=== PATIENT | female | born 1980 | race Caucasian/White ===

== ENCOUNTER → 2017-08-21 | Outpatient (CLI) | payer OTHER ==
[~2017-08-21] MED LIST: ACET-1770 PO; DOCU-131 PO; IBUP-1222 PO
== END | disposition home or self-care (01) ==
LOC: CVU 06:44
PROVIDERS: ATTEND Internal Medicine Cardiovascular Disease
DX: I08.1 Rheumatic disorders of both mitral and tricuspid valves (principal)
CPT/HCPCS: 93306

== ENCOUNTER 2017-12-09 11:15 | Inpatient (IN) | payer OTHER ==
[~2017-12-09] VITALS: Ht 170.2 cm; Wt 72.7 kg
[2017-12-14] MEDS ORDERED: D5%-LACTATED RINGERS 1,000 ML IV SCH (05:11)
[2017-12-14] MEDS ORDERED: OXYTOCIN 30U/ 0.9% NaCL 500ML 500 ML IV PRN (05:11)
[2017-12-14] MEDS ORDERED: OXYTOCIN 30U/ 0.9% NaCL 500ML 500 ML IV ONE (05:11)
[2017-12-14] MEDS ORDERED: NEWBORN KIT ONE (05:12)
[2017-12-14] MEDS ORDERED: OXYTOCIN 30U/ 0.9% NaCL 500ML 500 ML ONE (05:12)
[2017-12-14] MEDS ORDERED: ONDANSETRON 2MG/ML, 2ML IVPush PRN (05:30)
[2017-12-14] MEDS ORDERED: FENTANYL PF 100 MCG/2ML IVPush PRN (05:30)
[2017-12-14] MEDS ORDERED: CALCIUM CARBONATE 500 MG TAB.CHEW PO PRN ×2 (05:30→19:30)
[2017-12-14] MEDS ORDERED: FENTANYL PF 100 MCG/2ML IV PRN (05:30)
[2017-12-14] MEDS: AMPICILLIN 2 GM in SODIUM CHLORIDE 0.9% 100 ML IVPB SCH ×2 (05:45→12:16)
[2017-12-14] MEDS: LACTATED RINGERS 1,000 ML IV SCH ×3 (05:45→12:17)
[2017-12-14 05:46] VITALS: BP 108/71
[2017-12-14 05:57] LABS: BASOPHILS # (AUTO) 0.01 x10^3/uL (0-0.1); BASOPHILS % (AUTO) 0 % (0-1); EOSINOPHILS # (AUTO) 0.05 x10^3/uL (0-0.4); EOSINOPHILS % (AUTO) 1 % (1-7); LYMPHOCYTES # (AUTO) 1.96 x10^3/uL (1-3.4); LYMPHOCYTES % (AUTO) 27 % (22-44); MD NO; MEAN CORPUSCULAR HEMOGLOBIN 33.7 pg (27.0-34.8); MEAN CORPUSCULAR VOLUME 96.4 fL (80-100); MEAN PLATELET VOLUME 10.1 fL (7.4-10.4); MONOCYTES # (AUTO) 0.47 x10^3/uL (0.2-0.8); MONOCYTES % (AUTO) 7 % (2-9); NEUTROPHILS # (AUTO) 4.83 x10^3/uL (1.8-6.8); NEUTROPHILS % (AUTO) 66 % (42-75); PLATELET COUNT 192 x10^3/uL (130-400); RED BLOOD COUNT 3.74 x10^6/uL (3.82-5.3); RED CELL DISTRIBUTION WIDTH 12.9 % (9.6-15.2)
[2017-12-14] MEDS ORDERED: MISOPROSTOL 200 MCG TABLET ONE (10:53)
[2017-12-14] MEDS ORDERED: LIDOCAINE-MPF 2% ,5ML ONE (11:53)
[2017-12-14] MEDS ORDERED: FENTANYL/BUPIV./NS/PF 250 ML EPIDCONT ONE (11:54)
[2017-12-14] MEDS ORDERED: FENTANYL EPIDCONT ONE (11:55)
[2017-12-14] MEDS ORDERED: SODIUM CHLORIDE EPIDCONT ONE (11:55)
[2017-12-14] MEDS ORDERED: BUPIVACAINE EPIDCONT ONE (11:55)
[2017-12-14] MEDS ORDERED: LIDOCAINE 1%, 20ML ONE (11:55)
[2017-12-14] MEDS ORDERED: LACTATED RINGERS 1,000 ML IV SCH (12:18)
[2017-12-14] MEDS ORDERED: FENTANYL/BUPIV./NS/PF 250 ML EPIDCONT SCH (12:18)
[2017-12-14] MEDS ORDERED: NALOXONE 0.4 MG/ML, 1ML IVPush PRN (12:30)
[2017-12-14] MEDS ORDERED: EPHEDRINE 50 MG/ML, 1ML IVPush PRN (12:30)
[2017-12-14] MEDS ORDERED: LACTATED RINGERS 1,000 ML IVBOLUS PRN (12:30)
[2017-12-14] MEDS: OXYTOCIN 30U/ 0.9% NaCL 500ML 500 ML IV SCH (19:23)
[2017-12-14] MEDS ORDERED: DOCUSATE 100 MG CAPSULE PO PRN (19:30)
[2017-12-14] MEDS ORDERED: HYDROcodone/APAP 5/325 TABLET PO PRN ×2 (19:30)
[2017-12-14 21:00] VITALS: BP 93/55
[2017-12-14] MEDS: APAP/CODEINE 300/30MG TABLET PO PRN (21:57)
[2017-12-15 02:00] VITALS: BP 96/62
[2017-12-15 04:29] VITALS: BP 99/66
[2017-12-15 04:45] LABS: BASOPHILS # (AUTO) 0.06 x10^3/uL (0-0.1); BASOPHILS % (AUTO) 1 % (0-1); EOSINOPHILS # (AUTO) 0.06 x10^3/uL (0-0.4); EOSINOPHILS % (AUTO) 1 % (1-7); LYMPHOCYTES # (AUTO) 2.03 x10^3/uL (1-3.4); LYMPHOCYTES % (AUTO) 18 % (22-44); MD NO; MEAN CORPUSCULAR HEMOGLOBIN 33.7 pg (27.0-34.8); MEAN CORPUSCULAR HGB CONC 34.8 g/dL (32.4-35.8); MEAN CORPUSCULAR VOLUME 96.9 fL (80-100); MEAN PLATELET VOLUME 10.7 fL (7.4-10.4); MONOCYTES % (AUTO) 5 % (2-9); NEUTROPHILS # (AUTO) 8.45 x10^3/uL (1.8-6.8); NEUTROPHILS % (AUTO) 76 % (42-75); PLATELET COUNT 183 x10^3/uL (130-400); RED BLOOD COUNT 3.46 x10^6/uL (3.82-5.3)
[2017-12-15] MEDS: OXYTOCIN 30U/ 0.9% NaCL 500ML 500 ML IV SCH ×2 (05:23→15:23)
[2017-12-15] MEDS: APAP/CODEINE 300/30MG TABLET PO PRN ×2 (07:32→14:12)
[2017-12-15 07:55] VITALS: BP 109/69
[2017-12-15] MEDS ORDERED: ACET1TAB64 PO (08:34)
[2017-12-15] MEDS ORDERED: PRENATAL VIT/IRON/FA 1 EACH TABLET PO SCH (09:00)
[2017-12-15 11:50] VITALS: BP 102/68
[2017-12-15] MEDS ORDERED: DIPH,PERTUSS(ACELL),TET VAC/PF NC IM-VACC ONE ×2 (16:20→16:30)
[2017-12-15 17:00] VITALS: BP 125/82
== END 2017-12-15 17:20 | disposition home or self-care (01) | DRG 774 ==
LOC: LDIP 12-14 05:09 → 2NW 12-14 20:20
PROVIDERS: ADMIT Obstetrics & Gynecology Gynecology; ATTEND Obstetrics & Gynecology Gynecology
PROC: 3E033VJ Introduction of Other Hormone into Peripheral Vein, Percutaneous Approach (ICD-10-PCS; principal; 2017-12-14)
PROC: 10D07Z6 Extraction of Products of Conception, Vacuum, Via Natural or Artificial Opening (ICD-10-PCS; 2017-12-14)
PROC: 3E0R3BZ Introduction of Anesthetic Agent into Spinal Canal, Percutaneous Approach (ICD-10-PCS; 2017-12-14)
PROC: 00HU33Z Insertion of Infusion Device into Spinal Canal, Percutaneous Approach (ICD-10-PCS; 2017-12-14)
DX: O99.42 Diseases of the circulatory system complicating childbirth (principal); I05.9 Rheumatic mitral valve disease, unspecified; O99.824 Streptococcus B carrier state complicating childbirth; Z37.0 Single live birth; Z3A.40 40 weeks gestation of pregnancy
CPT/HCPCS: 36415; 82803; 85025; 86850; 86900; 90715; J0290; J3490; J3010; J7120; J7121

== ENCOUNTER → 2018-10-07 | Outpatient (CLI) | payer OTHER ==
[~2018-10-07] MED LIST changes: +ACET1TAB64 PO
== END | disposition home or self-care (01) ==
LOC: CVU 06:48
PROVIDERS: ATTEND Internal Medicine Cardiovascular Disease
DX: I08.1 Rheumatic disorders of both mitral and tricuspid valves (principal)
CPT/HCPCS: 93306

== ENCOUNTER 2021-03-14 09:23 | Emergency (ER) | payer OTHER ==
[~2021-03-14] VITALS: Ht 170.2 cm; Wt 66.4 kg
--- NOTE | 2021-03-14 09:56 | NUR ---
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
[2021-03-14] MEDS ORDERED: DIAZEPAM 5 MG TABLET ONE (10:30)
[2021-03-14] MEDS ORDERED: DIAZEPAM 5 MG TABLET PO ONE (10:30)
[2021-03-14] MEDS ORDERED: OXYcodone/APAP 5/325MG TABLET PO ONE (10:30)
[2021-03-14] MEDS ORDERED: OXYcodone/APAP 5/325MG TABLET ONE (10:30)
[2021-03-14] MEDS ORDERED: ONDANSETRON ODT 4 MG ONE (10:47)
[2021-03-14] MEDS ORDERED: ONDANSETRON ODT 4 MG PO ONE (11:00)
--- NOTE | 2021-03-14 11:40 | NUR ---
Patient given discharge instructions and Rx, they have confirmed that they understand the instructions. Patient ambulatory with steady gait. NAD, all questions answered appropriately, denies additional needs at this time. No personal belongings left in room after discharge.
[2021-03-14 11:59] VITALS: BP 106/67
== END 2021-03-14 12:01 | disposition home or self-care (01) ==
LOC: ED 11:55
DX: M54.41 Lumbago with sciatica, right side (principal)
CPT/HCPCS: 99284; Q0162

== ENCOUNTER → 2021-04-21 | Outpatient (CLI) | payer OTHER | END | disposition home or self-care (01) | LOC: CVU 06:39 | PROVIDERS: ATTEND Internal Medicine Cardiovascular Disease | DX: I34.0 Nonrheumatic mitral (valve) insufficiency (principal) | CPT/HCPCS: 93306; 93356 ==